=== PATIENT | male | born 1940 | race Caucasian/White ===

== ENCOUNTER 2017-04-26 01:10 | Emergency (ER) | payer MEDICARE ==
[2017-04-26 02:39] LABS: #Eosinphils 0.4 thou/uL (0.0-0.7); #Lymphocytes 1.5 thou/uL (1.20-3.40); #Monocytes 0.8 thou/uL (0.11-0.59); #Neutrophils 4.7 thou/uL (1.40-6.50); %Basophils 0.4 % (0.0-1.0); %Eosinophils 4.9 % (0.0-10.0); %Monocytes 10.6 % (0.0-10.0); Hematocrit 32.9 % (42.0-52.0); Mean Platelet Volume 6.8 fL (7.4-10.4); Red Blood Cell (RBC) Count 3.23 mill/uL (4.70-6.10); White Blood Cell (WBC) Count 7.3 thou/uL (4.8-10.8)
[2017-04-26 02:52] LABS: Anion Gap 19 mmol/L (10-20); BUN (Urea Nitrogen) 43 mg/dL (8.4-25.7); Calc. Creatinine Clearance 0 mL/min (70-130); Calcium 8.8 mg/dL (7.8-10.44); Carbon Dioxide 25 mmol/L (23-31); Chloride 94 mmol/L (98-107); Estimated GFR-MDRD 7
== END 2017-04-26 04:43 | disposition home or self-care (01) ==
LOC: ERS 01:10
DX: S80.261A Insect bite (nonvenomous), right knee, initial encounter (principal); L02.415 Cutaneous abscess of right lower limb; I13.2 Hypertensive heart and chronic kidney disease with heart failure and with stage 5 chronic kidney disease, or end stage renal disease; I50.9 Heart failure, unspecified; N18.6 End stage renal disease; E11.22 Type 2 diabetes mellitus with diabetic chronic kidney disease; J44.9 Chronic obstructive pulmonary disease, unspecified; I25.10 Atherosclerotic heart disease of native coronary artery without angina pectoris; F17.220 Nicotine dependence, chewing tobacco, uncomplicated; Z98.890 Other specified postprocedural states; Z99.2 Dependence on renal dialysis; Z79.4 Long term (current) use of insulin; Z79.899 Other long term (current) drug therapy; W57.XXXA Bitten or stung by nonvenomous insect and other nonvenomous arthropods, initial encounter
CPT/HCPCS: 10060; 36415; 80048; 85025

== ENCOUNTER 2017-12-20 21:14 | Inpatient (IN) | payer MEDICARE ==
[2017-12-20 22:06] LABS: #Eosinphils 0.2 thou/uL (0.0-0.7); #Monocytes 0.8 thou/uL (0.11-0.59); %Basophils 0.1 % (0.0-1.0); %Eosinophils 2.6 % (0.0-10.0); %Lymphocytes 16.6 % (21.0-51.0); %Monocytes 13.1 % (0.0-10.0); %Neutrophils 67.6 % (42.0-75.0); Hemoglobin 11.6 g/dL (14.0-18.0); Mean Corpuscular HGB CONC 33.2 g/dL (32.0-36.0); Mean Corpuscular Volume 99.5 fL (78.0-98.0); Mean Platelet Volume 7.2 fL (7.4-10.4); Platelet Count 241 thou/uL (130-400); RBC Distribution Width 13.1 % (11.5-14.5); Red Blood Cell (RBC) Count 3.51 mill/uL (4.70-6.10); White Blood Cell (WBC) Count 5.9 thou/uL (4.8-10.8)
[2017-12-20 22:26] LABS: ALT (SGPT) 10 U/L (8-55); AST (SGOT) 14 U/L (5-34); Albumin 3.5 g/dL (3.4-4.8); Alkaline Phosphatase 108 U/L (40-150); Anion Gap 13 mmol/L (10-20); BUN (Urea Nitrogen) 20 mg/dL (8.4-25.7); Bilirubin, Total 0.4 mg/dL (0.2-1.2); CK (CPK) 25 U/L (30-200); Calc. Creatinine Clearance 0 mL/min (70-130); Calcium 9.5 mg/dL (7.8-10.44); Carbon Dioxide 30 mmol/L (23-31); Chloride 95 mmol/L (98-107); Estimated GFR-MDRD 15; Globulin 3.3 g/dL (2.4-3.5); Glucose 268 mg/dL (83-110); Lipase 38 U/L (8-78); Protein, Total 6.8 g/dL (5.8-8.1); Sodium 134 mmol/L (136-145)
[2017-12-20 22:30] LABS: CKMB 1.5 ng/mL (0-6.6); Troponin I 0.022 ng/mL (< 0.028)
--- NOTE | 2017-12-20 22:46 | RAD ---
FRONTAL RADIOGRAPH CHEST: 12/20/2017 HISTORY: Chest pain and hypertension. COMPARISON: 01/02/2017 FINDINGS: prominence of the cardiac silhouette. No pneumothorax is seen. Stable midline sternotomy wi res. There is stable pleural thickening at the medial aspect of the right hemithorax, extending into the right costophrenic and cardiophrenic angle, suggesting nonspecific pleural thickening and/or ple ural fluid. This is stable when compared to the 01/02/2017 examination. IMPRESSION: Chronic findings, as described above. No acute findings are seen. POS: BENJAMIN
[2017-12-21] MEDS ORDERED: Acetaminophen 325 MG TAB PO PRN ×3 (00:51→03:05)
[2017-12-21] MEDS ORDERED: Ondansetron HCl/PF 4 MG/2 ML Vial IVP PRN ×3 (00:51→03:06)
[2017-12-21] MEDS ORDERED: Ipratropium Bromide 2.5 ml Neb NEB PRN (00:54)
[2017-12-21] MEDS ORDERED: HYDROcodone/Acetaminophen 10/325 mg Tablet PO PRN ×2 (00:54→03:07)
[2017-12-21 01:29] LABS: Troponin I 0.033 ng/mL (< 0.028)
[2017-12-21 01:34] VITALS: BMI 35.7
[2017-12-21] MEDS ORDERED: Ondansetron ODT 4 MG TAB SL PRN (01:39)
[2017-12-21] MEDS ORDERED: Aspirin 325 MG TAB PO SCH ×2 (03:45→09:00)
[2017-12-21] MEDS ORDERED: Dextrose 5% in Water 1,000 ML IV PRN (03:46)
[2017-12-21] MEDS ORDERED: cloNIDine 0.1 MG TAB PO PRN (03:46)
[2017-12-21] MEDS ORDERED: Insulin Regular 300 UNITS/3 ML VIAL SC PRN (03:46)
[2017-12-21] MEDS ORDERED: Dextrose 50% Abboject 50 ML SYRINGE IVP PRN (03:46)
[2017-12-21 05:46] LABS: Troponin I 0.037 ng/mL (< 0.028)
[2017-12-21] MEDS ORDERED: predniSONE 5 MG TAB PO SCH (08:00)
[2017-12-21] MEDS ORDERED: Calcium Carbonate 500 MG ChewTAB PO SCH (08:00)
[2017-12-21] MEDS ORDERED: Insulin Glargine 32 UNITS in Pre-Filled Syringe 1 EACH SC SCH (09:00)
[2017-12-21] MEDS ORDERED: Lisinopril 10 MG TAB PO SCH ×2 (09:00)
[2017-12-21] MEDS ORDERED: Heparin 5,000 UNITS/ML VIAL SC SCH (09:00)
[2017-12-21] MEDS ORDERED: Docusate 100 MG CAP PO SCH (09:00)
[2017-12-21] MEDS ORDERED: Carvedilol 6.25 MG TAB PO SCH (09:00)
[2017-12-21] MEDS ORDERED: Allopurinol 100 MG TAB PO SCH (09:00)
[2017-12-21] MEDS ORDERED: Non-Formulary Item 1 EACH (Insulin Glargine,Hum.Rec.Anlog [Lantus Solostar] 32 UNIT) SQ SCH (09:00)
[2017-12-21] MEDS ORDERED: ALPRAZolam 0.25 MG TAB PO SCH (09:00)
[2017-12-21] MEDS ORDERED: cloNIDine 0.1 MG TAB PO SCH (09:00)
[2017-12-21] MEDS: predniSONE 5 MG TAB PO SCH (09:31)
[2017-12-21] MEDS: Heparin 5,000 UNITS/ML VIAL SC SCH ×3 (09:31→20:42)
[2017-12-21] MEDS: Calcium Carbonate 500 MG ChewTAB PO SCH ×3 (09:32→17:44)
[2017-12-21] MEDS: Docusate 100 MG CAP PO SCH ×2 (09:32→20:44)
[2017-12-21] MEDS: Aspirin 325 MG TAB PO SCH (09:32)
[2017-12-21] MEDS: Carvedilol 6.25 MG TAB PO SCH ×2 (09:32→17:44)
[2017-12-21] MEDS: Allopurinol 100 MG TAB PO SCH (09:33)
[2017-12-21] MEDS: cloNIDine 0.1 MG TAB PO SCH (09:34)
[2017-12-21] MEDS: Insulin Glargine 32 UNITS in Pre-Filled Syringe 1 EACH SC SCH ×2 (09:34→20:41)
[2017-12-21] MEDS: ALPRAZolam 0.25 MG TAB PO SCH (09:34)
--- NOTE | 2017-12-21 12:25 | HP ---
PRIMARY CARE PHYSICIAN: Thomas Valdivia M.D. TIME OF EVALUATION: CHIEF COMPLAINT: Chest pain. HISTORY OF PRESENT ILLNESS: This is a 77-year-old male patient with past medical history of end-stag e renal disease on hemodialysis, also history of previous DE, status post stent placement that happen ed in 2016. The patient came to the hospital to having retrosternal chest pain, nausea reported as m oderate to severe, no clear triggers, no alleviating factors, patient improved after getting nitrogly cerin. REVIEW OF SYSTEMS: Constitutional: No fever, no chills, generalized weakness. Respiratory: No cou gh, sputum production or shortness of breath. Cardiovascular: Chest pain, no palpitation, no shortn ess of breath. Gastrointestinal: No nausea, vomiting, no diarrhea, no abdominal pain. Central nerv ous system: No dizziness, headache or feeling lightheaded. Genitourinary: No burning with urinatio n. Extremities: Bilateral leg swelling. PAST MEDICAL HISTORY: End-stage renal disease on hemodialysis Wednesday, Wednesday, Wednesday; coronary ar luiz disease; congestive heart failure; previous stent placement; diabetes type 2; COPD; asbestos exp osure. PAST SURGICAL HISTORY: CABG, cholecystectomy, orthopedic surgery of the knee, back surgery x1, fistu la of the upper extremity. PSYCHIATRIC HISTORY: Depression. SOCIAL HISTORY: No drug use. The patient chews tobacco. KNOWN ALLERGIES: IODINE and TAPE ADHERENT. REPORTED MEDICATIONS: Aspirin, Colace, Imdur, clonidine, alprazolam, Castell, Lantus, fish oil, predni sone, NovoLog, allopurinol, Crestor, Coreg, nitroglycerin. PHYSICAL EXAMINATION: VITAL SIGNS: On presentation, heart rate 81, respiratory rate 22, temperature 98.7, oxygen saturatio n 97 on 2 liters, blood pressure 149/71. GENERAL APPEARANCE: The patient is alert, oriented, not any acute distress. HEENT: Eyes: Normal conjunctivae. Moist oral mucosa. Anicteric. NECK: No JVD. RESPIRATORY: Bilateral air entry. No rales, no wheezing. Symmetric expansion. CARDIOVASCULAR: Normal rate, regular rhythm, no murmur, no gallop. Bilateral leg edema. ABDOMEN: Soft, distended, normal bowel sounds. MUSCULOSKELETAL: Baseline range of motion and strength. No tenderness. SKIN: Warm and intact. No pallor, no rash, no redness. NEUROLOGIC: Baseline sensory. No evidence of any new focal weakness. Baseline speech. Cranial ner ves seem to be intact. PSYCHIATRIC: The patient is in a good mood, no anxiety, oriented, optimal judgment. EKG was reviewed and discussed with ER physician who was the performing doctor had normal sinus rhyt hm at 78. There are strong ST and T-wave abnormalities in lateral leads, inferior infarct, age undet ermined. Chest x-ray, chronic findings as described above. No acute findings are seen, likely patie nt has damage from asbestos exposure. LABORATORY DATA: Reviewed. White count 5.9, hemoglobin 11.6, platelet count 241. Sodium 134, potas sium 4.0, chloride 95, carbon dioxide was 30, anion gap 13, BUN 20, creatinine 1.0, GFR 15, glucose 2 68. Troponin has been borderline x3, initial 0.022, second 0.033, third one 0.037. Beta natriuretic peptide 139. Lipase was negative. ASSESSMENT AND PLAN: The patient will be placed in the hospital following medical condition. 1. Chest pain, rule out acute coronary syndrome. Troponins are borderline 0.033, 0.037. The patien t has some T-wave abnormalities in lateral leads, patient has strong risk factors for acute coronary syndrome, we will consult Cardiology in the morning. 2. History of gout. Continue allopurinol. 3. History of end-stage renal disease on hemodialysis, patient follows with Dr. Valdivia, we will need hemodialysis as inpatient. 4. Hypertensive urgency, initially presented with systolic of 230, the patient got fluid overload, r econciled medications, monitor and adjust treatment as needed. 5. Uncontrolled diabetes with hyperglycemia, glucose 268, reconcile home medications, start sliding scale. 6. Deep venous thrombosis prophylaxis.
[2017-12-21] MEDS: Ipratropium Bromide 2.5 ml Neb NEB PRN (15:43)
[2017-12-21] MEDS: Lisinopril 10 MG TAB PO SCH (20:44)
[2017-12-21] MEDS: Rosuvastatin 10 MG TAB PO SCH (20:45)
[2017-12-21] MEDS ORDERED: Rosuvastatin 10 MG TAB PO SCH (21:00)
--- NOTE | 2017-12-22 02:04 | CON ---
DATE OF CONSULTATION: 12/21/2017 PRIMARY RECORDS MANAGEMENT ASSOCIATE: Dr. Keenan Avalos. REASON FOR CONSULTATION: Chest pain, congestive heart failure, coronary artery disease, end-stage re nal disease, peripheral vascular disease. HISTORY OF PRESENT ILLNESS: Mr. Beltran is a 77-year-old gentleman. The patient has a history of co ronary artery bypass grafting and previous percutaneous intervention. The patient did have previous bypass surgery and also presented with chest pain in 01/2015. He underwent cardiac catheterization a nd was found to have a stenosis in the circumflex vessel, which was successfully stented by Dr. Ko Garnica. The patient had a 2.5 x 20 Promus drug-eluting stent positioned and deployed. Attempts with a ProGlide closure was done, but it was unsuccessful due to calcific nature of the gris pheral disease. I did have an Angio-Seal done successfully. The patient states since then he has had quite a bit of chest pain. He had improvement following the procedure, but then had some recurrent chest pain. He says that when his blood pressure gets high, which happens frequently, he will get chest pain. He did have episodes of chest pain on this occasio n associated with blood pressure of 230 systolic. The patient is currently resting comfortably. The patient's pain is in the middle of his chest and going across the chest. REVIEW OF SYSTEMS: Constitutional: No significant weight gain or loss. Vision: No changes. Heari ng: No changes. Pulmonary: No cough or wheezing. Gastrointestinal: No nausea, vomiting, or diarr hea. Skin: No rashes. Neurologic: No unilateral weakness or numbness. SOCIAL HISTORY: Continues to chew tobacco. ALLERGIES: IODINE and TAPE. MEDICATIONS: Prior to admission, he was taking, 1. Crestor. 2. Insulin. 3. Carvedilol. 4. Aspirin. 5. Isosorbide 15 mg a day. PHYSICAL EXAMINATION: GENERAL: This is a 77-year-old gentleman, resting comfortably, but he cannot lay down closer to than about 30 degree angle. VITAL SIGNS: Blood pressure is variable, it was 230 systolic initially, now it is 102/48; pulse is 7 0, it is regular. LUNGS: Clear. CARDIAC: Normal S1, normal S2. ABDOMEN: Soft, nontender. He is obese. EXTREMITIES: No clubbing or cyanosis. There is moderate peripheral edema. I do not feel pedal puls es. SKIN: Warm and dry. PERTINENT LABORATORIES AND IMAGING: Hemoglobin is 11.6. His platelet count is 241. Creatinine is 4 .02. EKG: Sinus rhythm with some nonspecific T-wave changes in lead I and aVL similar to previous E KGs. Cardiac enzymes are within normal limits for a dialysis patient with a troponin of 0.037. ASSESSMENT: 1. Anginal chest pain. 2. Labile hypertension. 3. End-stage renal disease. 4. Severe coronary artery disease. I did review the cardiac catheterization films. He has very dif fuse atherosclerosis. 5. Appears to be in congestive heart failure, unable to lay more than about a 30 degree angle. PLAN: 1. Increase VIRI inhibitors. 2. Continue carvedilol. 3. Continue dialysis. 4. Try to stabilize then proceeded to stress testing to see if there is any evidence of stress induc ed ischemia.
[2017-12-22 11:44] LABS: HBSAg Index 0.19 S/CO (0-0.99); Hep B Surf Ag Non-Reactive S/CO (NonReactive)
[2017-12-22] MEDS: Calcium Carbonate 500 MG ChewTAB PO SCH ×3 (14:30→20:41)
[2017-12-22] MEDS: Aspirin 325 MG TAB PO SCH (15:51)
[2017-12-22] MEDS: Allopurinol 100 MG TAB PO SCH (15:52)
[2017-12-22] MEDS: Lisinopril 10 MG TAB PO SCH ×3 (15:52→20:43)
[2017-12-22] MEDS: Carvedilol 6.25 MG TAB PO SCH ×2 (15:52→17:28)
[2017-12-22] MEDS: Docusate 100 MG CAP PO SCH ×2 (15:53→20:37)
[2017-12-22] MEDS: ALPRAZolam 0.25 MG TAB PO SCH (15:53)
[2017-12-22] MEDS: cloNIDine 0.1 MG TAB PO SCH (15:53)
[2017-12-22] MEDS: Heparin 5,000 UNITS/ML VIAL SC SCH ×3 (15:54→20:44)
[2017-12-22] MEDS ORDERED: HumaLOG 300 UNITS/3 ML VIAL SC PRN (17:26)
--- NOTE | 2017-12-22 17:29 | PDOC.PN ---
- Subjective Encounter Start Date: 12/22/17 (f/u DM) Encounter Start Time: 17:27 Subjective: Pt reports pain in his buttocks from sitting/laying all the time -: denies any chest pain, reports his breathing is at baseline. -: denies n/v/abd pain. - Objective Vital Signs & Weight: Vital Signs (12 hours) Temp Pulse Resp BP BP Pulse Ox 12/22/17 15:53 145/65 H 12/22/17 15:52 145/65 H 12/22/17 08:00 98.0 F 73 16 99 12/22/17 07:38 98 12/22/17 07:26 98.0 F 73 16 165/72 H 99 Weight Weight 271 lb 1.6 oz I&O: 12/21/17 12/22/17 12/23/17 06:59 06:59 06:59 Output Total 4700 Balance -4700 Result Diagrams: 12/20/17 21:57 12/20/17 21:57 Additional Labs: Accuchecks 12/22/17 12/21/17 06:11 20:42 POC Glucose 79 193 H EKG Reviewed by me: Yes (tele - sinus 60-70's, yesterday trigeminal pac's) Phys Exam - Physical Examination Constitutional: NAD Respiratory: no wheezing, no rales, no rhonchi, clear to auscultation bilateral distant breath sounds Cardiovascular: RRR, no significant murmur distant heart sounds Gastrointestinal: soft, non-tender, no distention, positive bowel sounds Musculoskeletal: no edema Neurological: non-focal, moves all 4 limbs Psychiatric: normal affect Dx/Plan (1) Chest pain Code(s): R07.9 - CHEST PAIN, UNSPECIFIED Status: Acute Qualifiers: Chest pain type: unspecified Qualified Code(s): R07.9 - Chest pain, unspecified (2) Diabetes mellitus Code(s): E11.9 - TYPE 2 DIABETES MELLITUS WITHOUT COMPLICATIONS Status: Chronic Qualifiers: Diabetes mellitus charge master specialist insulin use: with charge master specialist use Diabetes mellitus complication status: with kidney complications Diabetes mellitus complication detail: with chronic kidney disease Chronic kidney disease stage : on chronic dialysis (3) CAD (coronary artery disease) Code(s): I25.10 - ATHSCL HEART DISEASE OF [place] CORONARY ARTERY W/O ANG PCTRS Status: Chronic Qualifiers: Coronary Disease-Associated Artery/Lesion type: bypass graft Comment: Stable, continue home medication regimen (4) COPD (chronic obstructive pulmonary disease) Status: Chronic (5) ESRD (end stage renal disease) on dialysis Code(s): N18.6 - END STAGE RENAL DISEASE; Z99.2 - DEPENDENCE ON RENAL DIALYSIS Status: Chronic (6) Fluid overload Code(s): E87.70 - FLUID OVERLOAD, UNSPECIFIED Status: Resolved - Plan * Chest pain - awaiting stress test, planned for tomorrow * ESRD - HD per Dr. Valdivia. Had sesssion today with removal of 4.7 L fluid * DM - low blood sugar this morning - will d/c lantus - re-evaluate in the [facility] * Change meal insulin to mild humalog. Hold bedtime insulin as long-acting on board * Add 02:00 check monitoring for hypoglycemia * Other meds - no change. * COPD/Asbestosis - appears stable, continue current tx * * dvt prophy - heparin * gi prophy - not indicated * code status full * * reviewed plan of care wiht patient, no questions or further needs at end of eval. Pt remains at high risk in current condition.
[2017-12-22] MEDS: Rosuvastatin 10 MG TAB PO SCH (20:37)
[2017-12-22] MEDS: predniSONE 5 MG TAB PO SCH (20:41)
[2017-12-22] MEDS: Insulin Glargine 32 UNITS in Pre-Filled Syringe 1 EACH SC SCH (20:42)
--- NOTE | 2017-12-22 22:09 | PRG ---
DATE OF SERVICE: 12/22/2017 HISTORY: Mr. Beltran states he is still short of breath. He had 4.5 L of fluid removed today. PHYSICAL EXAMINATION: VITAL SIGNS: Blood pressure is 140 systolic, pulse 70. LUNGS: Clear. CARDIAC: Normal S1 and S2. ABDOMEN: Soft, nontender. EXTREMITIES: There is mild edema. ASSESSMENT: 1. Diastolic heart failure, appears clinically improved. 2. He states he also has history of asbestos exposure and is chronically short of breath. PLAN: He had a resting stress test today, stress tomorrow. Further recommendations following that.
[2017-12-23 05:51] LABS: Anion Gap 17 mmol/L (10-20); BUN (Urea Nitrogen) 24 mg/dL (8.4-25.7); Calc. Creatinine Clearance 23 mL/min (70-130); Calcium 9.6 mg/dL (7.8-10.44); Carbon Dioxide 26 mmol/L (23-31); Chloride 97 mmol/L (98-107); Estimated GFR-MDRD 12; Glucose 123 mg/dL (83-110); Potassium 4.3 mmol/L (3.5-5.1); Sodium 136 mmol/L (136-145)
[2017-12-23 06:13] LABS: Band 6 % (5-11); Eosinophils 8 % (0-10); Hemoglobin 11.7 g/dL (14.0-18.0); Lymphocytes 29 % (21-51); MDiff Complete? YES; Mean Corpuscular HGB CONC 31.8 g/dL (32.0-36.0); Mean Platelet Volume 7.3 fL (7.4-10.4); Monocytes 12 % (0-10); Neutrophil 45 % (42-75); PLT Morphology Comment Appears Adequate; Platelet Count 268 thou/uL (130-400); RBC Distribution Width 13.2 % (11.5-14.5); Red Blood Cell (RBC) Count 3.65 mill/uL (4.70-6.10); White Blood Cell (WBC) Count 5.9 thou/uL (4.8-10.8)
--- NOTE | 2017-12-23 08:55 | PRG ---
DATE OF SERVICE: 12/23/2017 Mr. Beltran states he is feeling about the same, no complaints. His breathing is about the same as b tomeka. PHYSICAL EXAMINATION: VITAL SIGNS: Blood pressure 97/53, pulse 80 its regular. LUNGS: Clear. CARDIAC: Normal S1 and S2. ABDOMEN: Soft, nontender. EXTREMITIES: There is still moderate edema. ASSESSMENT: 1. Diastolic congestive heart failure. 2. End-stage renal disease on dialysis. 3. Coronary artery disease. PLAN: The patient is to complete stress test today. If it is okay, he will come back as an outpatie nt to see Dr. Avalos.
[2017-12-23] MEDS: predniSONE 5 MG TAB PO SCH (09:18)
[2017-12-23] MEDS: Heparin 5,000 UNITS/ML VIAL SC SCH ×3 (09:18→21:05)
[2017-12-23] MEDS: Aspirin 325 MG TAB PO SCH (09:18)
[2017-12-23] MEDS: Allopurinol 100 MG TAB PO SCH (09:18)
[2017-12-23] MEDS: Docusate 100 MG CAP PO SCH ×2 (09:18→21:06)
[2017-12-23] MEDS: Calcium Carbonate 500 MG ChewTAB PO SCH ×3 (09:19→16:45)
[2017-12-23] MEDS: Carvedilol 6.25 MG TAB PO SCH ×2 (09:19→16:45)
[2017-12-23] MEDS: ALPRAZolam 0.25 MG TAB PO SCH (09:19)
[2017-12-23] MEDS: cloNIDine 0.1 MG TAB PO SCH (09:20)
[2017-12-23] MEDS: Lisinopril 10 MG TAB PO SCH ×2 (09:21→21:06)
[2017-12-23] MEDS ORDERED: Fluticasone Propionate Nasal Spray 16 gm Bottle NASAL SCH (11:45)
[2017-12-23] MEDS ORDERED: Loratadine 10 MG TAB PO SCH (12:15)
--- NOTE | 2017-12-23 13:14 | PDOC.PN ---
- Subjective Encounter Start Date: 12/23/17 Encounter Start Time: 08:10 -: old records requested/rev Pt seen and examined, chart reviewed in its entirety, this is my first visit with this patient No F/C, no N/V/D/C, no CP, no SOB. pt went for stress earlier, but couldnt lay flat witohut coughing so sent back up. Now with flonae and zyrtec better, but no open slots, rescheduled for tomorrow All systems reviewed and neg for all except as above - Objective MAR Reviewed: Yes Vital Signs & Weight: Vital Signs (12 hours) Temp Pulse Resp BP Pulse Ox 12/23/17 11:46 98 F 75 20 142/63 H 98 12/23/17 10:21 97.8 F 80 18 117/56 L 98 12/23/17 07:21 97.7 F 80 20 97/51 L 96 12/23/17 06:15 97.5 F L 71 22 H 107/52 L 96 12/23/17 01:25 97.6 F 73 20 130/60 96 Weight Weight 271 lb 1.6 oz I&O: 12/22/17 12/23/17 12/24/17 06:59 06:59 06:59 Intake Total 300 Output Total 4850 Balance -4550 Result Diagrams: 12/23/17 04:31 12/23/17 04:31 Additional Labs: Accuchecks 12/23/17 12/23/17 12/22/17 10:35 05:21 16:39 POC Glucose 106 124 H 115 H Radiology Reviewed by me: Yes EKG Reviewed by me: Yes Phys Exam - Physical Examination Constitutional: NAD HEENT: PERRLA, moist MMs, sclera anicteric, oral pharynx no lesions Neck: no nodes, no JVD, supple, full ROM Respiratory: no wheezing, no rales, no rhonchi, clear to auscultation bilateral Cardiovascular: RRR, no significant murmur, no rub Gastrointestinal: soft, non-tender, no distention, positive bowel sounds Musculoskeletal: pulses present, edema present Neurological: non-focal, normal sensation, moves all 4 limbs Lymphatic: no nodes Psychiatric: normal affect, A&O x 3 Skin: no rash, normal turgor, cap refill <2 seconds Dx/Plan (1) Chest pain Code(s): R07.9 - CHEST PAIN, UNSPECIFIED Status: Acute Qualifiers: Chest pain type: unspecified Qualified Code(s): R07.9 - Chest pain, unspecified Comment: neg biomarkers. stress now in AM, NPO after MN, can eat for now (2) Diabetes mellitus Code(s): E11.9 - TYPE 2 DIABETES MELLITUS WITHOUT COMPLICATIONS Status: Chronic Qualifiers: Diabetes mellitus senior living insulin use: with senior living use Diabetes mellitus complication status: with kidney complications Diabetes mellitus complication detail: with chronic kidney disease Chronic kidney disease stage : on chronic dialysis (3) Diastolic heart failure Code(s): I50.30 - UNSPECIFIED DIASTOLIC (CONGESTIVE) HEART FAILURE Status: Acute Qualifiers: (4) Anemia Code(s): D64.9 - ANEMIA, UNSPECIFIED Status: Chronic (5) CAD (coronary artery disease) Code(s): I25.10 - ATHSCL HEART DISEASE OF [place] CORONARY ARTERY W/O ANG PCTRS Status: Chronic Qualifiers: Coronary Disease-Associated Artery/Lesion type: bypass graft Comment: Stable, continue home medication regimen (6) COPD (chronic obstructive pulmonary disease) Status: Chronic (7) ESRD (end stage renal disease) on dialysis Code(s): N18.6 - END STAGE RENAL DISEASE; Z99.2 - DEPENDENCE ON RENAL DIALYSIS Status: Chronic - Plan cont current plan of care * .
[2017-12-23] MEDS: Rosuvastatin 10 MG TAB PO SCH (21:05)
[2017-12-24] MEDS: Ipratropium Bromide 2.5 ml Neb NEB PRN (07:03)
[2017-12-24] MEDS: predniSONE 5 MG TAB PO SCH (08:17)
[2017-12-24] MEDS: Heparin 5,000 UNITS/ML VIAL SC SCH ×2 (08:17→15:21)
[2017-12-24] MEDS: Allopurinol 100 MG TAB PO SCH (08:17)
[2017-12-24] MEDS: Aspirin 325 MG TAB PO SCH (08:17)
[2017-12-24] MEDS: Calcium Carbonate 500 MG ChewTAB PO SCH ×3 (08:28→17:31)
[2017-12-24] MEDS: Carvedilol 6.25 MG TAB PO SCH ×2 (08:28→17:21)
[2017-12-24] MEDS: ALPRAZolam 0.25 MG TAB PO SCH (08:29)
[2017-12-24] MEDS: Lisinopril 10 MG TAB PO SCH (08:29)
[2017-12-24] MEDS: Docusate 100 MG CAP PO SCH (08:29)
[2017-12-24] MEDS: cloNIDine 0.1 MG TAB PO SCH (08:30)
[2017-12-24] MEDS ORDERED: Regadenoson 0.4 MG/5 ML SYRINGE ONE (09:32)
[2017-12-24] MEDS ORDERED: Heparin 1,000 UNITS/ML VIAL ONE (11:11)
--- NOTE | 2017-12-24 11:54 | PDOC.CTH ---
Cardiology Progress Note - Subjective The pt seen and examined. No overnight events. No cardiac complaints. He is having Stress test at this moment. - Objective Vital Signs Temp Pulse Resp BP Pulse Ox 12/24/17 07:28 97.6 F 72 20 147/65 H 100 12/24/17 07:03 77 16 12/24/17 04:00 97.8 F 77 14 121/58 L 99 Weight 262 lb 1.6 oz 12/23/17 12/24/17 12/25/17 06:59 06:59 06:59 Intake Total 300 420 Output Total 4850 0 Balance -4550 420 - Physical Examination General/Neuro: alert & oriented x3 Neck: no JVD present Lungs: CTA Heart: RRR Abdomen: soft Extremities: other: (No edema) - Telemetry Telemetry Rhythm: SR w/ST elev in II & aVF - Labs Result Diagrams: 12/23/17 04:31 12/23/17 04:31 Troponin/CKMB CK-MB (CK-2) 1.5 ng/mL (0-6.6) 12/20/17 21:57 Troponin I 0.037 ng/mL (< 0.028) H 12/21/17 04:17 - Assessment/Plan 1. Chest pain - stress test result is pending; at this moment, the pt denied CP or discomfort in his chest 2. Acute on Chronic Diastolic HF - stable with current med; cont. to monitor 3. CAD with hx of CABG - stable 4. ESRD - will have HD today 5. COPD - stable with NC 6. DM - managed by PCP 7. Anemia - stable MAR reviewed * Dr. Avalos's pt Review of Systems - Review of Systems Constitutional: reports: no symptoms reported EENTM: reports: no symptoms reported Respiratory: reports: no symptoms reported Cardiac (ROS): reports: no symptoms reported ABD/GI: reports: no symptoms reported : reports: no symptoms reported Musculoskeletal: reports: no symptoms reported
--- NOTE | 2017-12-24 14:16 | NM ---
NUCLEAR MEDICINE CARDIAC MYOCARDIAL PERFUSION SPECT EJECTION FRACTION STUDY WALL MOTION CINE: DATE: 12/24/2017 HISTORY: A 77-year-old male with a history of coronary artery disease, congestive heart failure, end stage shaila al disease, and diabetes mellitus, who presents with acute chest pain. TECHNIQUE: Number of days: One. Rest study: Tc99m sestamibi (Cardiolite) dose: 10.0 mCi Pharmacologic stress: Lexiscan dose: 0.4 mg Stress study: Tc99m sestamibi (Cardiolite) dose: 27.0 mCi FINDINGS: CARDIAC (MYOCARDIAL PERFUSION) SPECT There is a large, confluent, fixed myocardial perfusion defect involving the lateral wall, the adjace nt superolateral and inferolateral regions, the apex, and the adjacent apicoanterior region, consiste nt with a large infarction/scar. Along the periphery of the anteroapical component of the fixed perf usion defect, there appears to be a slightly greater degree of additional perfusion defect on the str ess images compared to the rest images, questionable for gris-infarct reversible ischemia. EJECTION FRACTION STUDY EF = 43% WALL MOTION CINE Despite the fact that the large infarction is mostly on the left side, there is severe hypokinesis an d possibly some paradoxical motion involving the right lateral wall, contiguous with the hypokinetic apex. IMPRESSION: 1. Large, confluent infarction(s)/scar(s). 2. Questionable gris-infarct reversible ischemia in the anterior wall. 3. Decreased left ventricular ejection fraction of 43%. BLADE Bunn POS: ARIELLE
[2017-12-24 17:30] VITALS: BP 126/60; TEMP 97.7
--- NOTE | 2017-12-24 20:54 | DIS ---
PRIMARY CARE PHYSICIAN: Dr. Thomas Valdivia. DATE OF ADMISSION: 12/21/2017 DATE OF DISCHARGE: 12/24/2017 DISCHARGE DIAGNOSES: 1. Chest pain, likely noncardiac. 2. End-stage renal disease, on hemodialysis. 3. Diabetes mellitus type 2 without mention of complication of the renal disease. 4. Essential hypertension. 5. History of chronic diastolic congestive heart failure. CONSULTATIONS: Cardiology, Dr. Román Carmona. PROCEDURES: 1. Nuclear stress test, 12/24/2017. 2. A 2D echocardiogram 12/22/2017 showed EF 50%-55%, technically difficult study, normal left atrium , aortic sclerosis without stenosis and trace TR. HISTORY AND PHYSICAL: Mr. Beltran is a 77-year-old male with history of obesity, end-stage renal dis ease, coronary artery disease who was in the emergency department late 12/20/2017 for evaluation of c hest pain. Workup in the emergency department was unremarkable. Vitals and labs were normal. We we re subsequently called her admit for rule out. HOSPITAL COURSE: The patient was seen and examined by Dr. Sanaz Womack, placed in observation [facility]. He ordered serial cardiac biomarkers, a 2D echocardiogram and a Cardiology consult. Overnight 12/21 to 12/22/2017, the patient remained stable. He was seen by Cardiology by Dr. Claros initially on 12/21/2017 who did agree with the echocardiogram. Echocardiogram was done on the morning of 12/22. He had no further chest pressure and the patient was continually monitored in the hospital. A stress test was ordered due to recent stenting, however, will be done on 12/22/2017. On 12/23/2017, he was supposed to have his stress test; however, he was unable to lay flat due to cou ghing from allergies. He was started on Zyrtec and Flonase with good results, but his part had alrea dy been given away, so he has kept one more night. Next morning, a nuclear stress test done that marissa wed questionable area of (02:49) reversible ischemia. Dr. Carmona reviewed the studies and felt it was appropriate to follow up as an outpatient in 1-[address] Avalos. DISCHARGE PHYSICAL EXAMINATION: The patient was seen and examined on the day of discharge. Discharg e plan and disposition discussed with the patient [id number] at the bedside. DISCHARGE MEDICATIONS: 1. Allopurinol 100 mg daily. 2. Xanax 0.25 mg daily. 3. Tums 1000 mg p.o. t.i.d. with meals. 4. Carvedilol 6.25 mg p.o. b.i.d. 5. Clonidine 0.1 mg daily p.r.n. elevated blood pressure greater than 180/90. 6. Docusate 100 mg p.o. b.i.d. 7. Hydrocodone/acetaminophen 10/325 one p.o. q.4 h. p.r.n. pain. 8. Atrovent 2.5 mg nebulized t.i.d. 9. Imdur ER 50 mg p.o. daily. 10. Lisinopril 10 mg daily. 11. Prednisone 5 mg daily. 12. Crestor 10 mg p.o. at bedtime. 13. Aspirin 81 mg daily. 14. Fish oil 1000 mg daily. 15. NovoLog FlexPen if sugar over 300. 16. Lantus 44 units subcu b.i.d. 17. Nitrostat p.r.n. FOLLOWUP APPOINTMENTS: 1. Primary care physician within a week. 2. Dr. Avalos in 1-2 weeks per his clinic. DISCHARGE CONDITION: Stable. DISPOSITION: Will be discharged home via private vehicle. DISCHARGE ACTIVITY: Per cardiopulmonary limits. DISCHARGE DIET: Heart healthy diabetic diet recommended.
== END 2017-12-24 18:16 | disposition home or self-care (01) | DRG 313 ==
LOC: EDBD 21:14 → ERS 21:14 → 2SW 23:42 → ERS 12-21 01:18 → OBSVTOIN 12-21 16:33 → 2NO 12-22 10:04
PROVIDERS: ADMIT Hospitalist; ATTEND Hospitalist
PROC: 5A1D70Z Performance of Urinary Filtration, Intermittent, Less than 6 Hours Per Day (ICD-10-PCS; principal; 2017-12-21)
DX: R07.9 Chest pain, unspecified (principal); N18.6 End stage renal disease; I50.33 Acute on chronic diastolic (congestive) heart failure; I13.2 Hypertensive heart and chronic kidney disease with heart failure and with stage 5 chronic kidney disease, or end stage renal disease; E11.22 Type 2 diabetes mellitus with diabetic chronic kidney disease; E11.65 Type 2 diabetes mellitus with hyperglycemia; F17.220 Nicotine dependence, chewing tobacco, uncomplicated; Z99.2 Dependence on renal dialysis; Z79.4 Long term (current) use of insulin; E66.9 Obesity, unspecified; Z68.34 Body mass index [BMI] 34.0-34.9, adult; D64.9 Anemia, unspecified; I25.2 Old myocardial infarction; E11.51 Type 2 diabetes mellitus with diabetic peripheral angiopathy without gangrene; F32.9 Major depressive disorder, single episode, unspecified; Z79.82 Long term (current) use of aspirin; I16.0 Hypertensive urgency; J44.9 Chronic obstructive pulmonary disease, unspecified; Z95.1 Presence of aortocoronary bypass graft; I25.10 Atherosclerotic heart disease of native coronary artery without angina pectoris
CPT/HCPCS: 36415; 36416; 71045; 78452; 80048; 80053; 82550; 82553; 83690; 83880; 84484; 85025; 87340; 90935; 93005; 93017; 93306; 93798; 94640; 94760; A9500; G0257; J1644; J1815; J2785; J7644

== ENCOUNTER 2018-03-18 09:30 | Emergency (ER) | payer MEDICARE ==
[2018-03-18 10:28] LABS: #Eosinphils 0.2 thou/uL (0.0-0.7); #Lymphocytes 0.7 thou/uL (1.20-3.40); #Monocytes 0.4 thou/uL (0.11-0.59); #Neutrophils 5.2 thou/uL (1.40-6.50); %Basophils 0.1 % (0.0-1.0); %Eosinophils 2.6 % (0.0-10.0); %Lymphocytes 11.1 % (21.0-51.0); %Monocytes 5.5 % (0.0-10.0); %Neutrophils 80.7 % (42.0-75.0); Hemoglobin 10.5 g/dL (14.0-18.0); Mean Corpuscular HGB CONC 31.7 g/dL (32.0-36.0); Mean Corpuscular Hemoglobin 31.7 pg (27.0-31.0); Mean Platelet Volume 7.6 fL (7.4-10.4); Platelet Count 249 thou/uL (130-400); RBC Distribution Width 13.5 % (11.5-14.5); White Blood Cell (WBC) Count 6.4 thou/uL (4.8-10.8)
[2018-03-18 10:37] LABS: Base Excess-Venous 5.5 mmol/L (0 (+/- 2.5)); Bicarbonate (HCO3v) 28.3 mmol/L (1.0-85.0); CO2 Tension (PvCO2) 33.8 mmHg (41.0-51.0); Calcium, Ionized 0.99 mmol/L (1.12-1.32); Hemoglobin - Calc 10.9 g/dL (12.0-18.0); O2 Tension (PvO2) 109.8 mmHg (35.0-45.0); Potassium 4.1 mmol/L (3.4-4.7); T. Carbon Dioxide 29.3 mmol/L (1.0-85.0); pH (Venous) 7.531 (7.35-7.45); vO2 Saturation-calc 98.8 % (94-98)
--- NOTE | 2018-03-18 10:38 | RAD ---
CHEST 1 VIEW: COMPARISON: 12/20/17. HISTORY: Shortness of breath. Dyspnea. FINDINGS: Persistent cardiomegaly and sternotomy wires. Pulmonary vessels and hilum are normal. Persistent op acification of the lung bases. No pneumothorax or osseous abnormalities. IMPRESSION: 1. Cardiomegaly. 2. Persistent pleural and parenchymal changes in the lung bases. The possibility of congestive hear t failure superimposed upon chronic change is raised. Continued surveillance is recommended. POS: ARIELLE
[2018-03-18 10:58] LABS: ALT (SGPT) 12 U/L (8-55); AST (SGOT) 14 U/L (5-34); Albumin 3.4 g/dL (3.4-4.8); Alkaline Phosphatase 104 U/L (40-150); Anion Gap 16 mmol/L (10-20); BUN (Urea Nitrogen) 40 mg/dL (8.4-25.7); Bilirubin, Total 0.3 mg/dL (0.2-1.2); Calc. Creatinine Clearance 0 mL/min (70-130); Calcium 9.4 mg/dL (7.8-10.44); Carbon Dioxide 29 mmol/L (23-31); Chloride 92 mmol/L (98-107); Estimated GFR-MDRD 8; Globulin 3.2 g/dL (2.4-3.5); Glucose 405 mg/dL (83-110); Potassium 4.3 mmol/L (3.5-5.1); Protein, Total 6.6 g/dL (5.8-8.1); Sodium 133 mmol/L (136-145)
[2018-03-18 11:02] LABS: CKMB 1.9 ng/mL (0-6.6); Troponin I 0.025 ng/mL (< 0.028)
== END 2018-03-18 13:18 | disposition home or self-care (01) ==
LOC: ERS 09:30
DX: I13.2 Hypertensive heart and chronic kidney disease with heart failure and with stage 5 chronic kidney disease, or end stage renal disease (principal); I50.9 Heart failure, unspecified; N18.6 End stage renal disease; E11.22 Type 2 diabetes mellitus with diabetic chronic kidney disease; E66.01 Morbid (severe) obesity due to excess calories; F32.9 Major depressive disorder, single episode, unspecified; F17.220 Nicotine dependence, chewing tobacco, uncomplicated; Z79.899 Other long term (current) drug therapy; Z79.4 Long term (current) use of insulin; Z79.82 Long term (current) use of aspirin
CPT/HCPCS: 36415; 71045; 80053; 82330; 82553; 82803; 84484; 85025; 93005